=== PATIENT | female | born 1960 | race Caucasian/White ===

== ENCOUNTER 2019-12-23 13:11 | Emergency (ER) | payer MEDICAID ==
[~2019-12-23] VITALS: Ht 162.6 cm; Wt 66.7 kg
[2019-12-23 13:36] VITALS: Ht 162.6 cm; Wt 66.7 kg
[2019-12-23 14:28] LABS: BASOPHIL % 0.3 % (0-2); PLATELET COUNT 343 x10^3mcL (130-400)
[2019-12-23 14:41] LABS: CALCIUM 9.3 mg/dL (8.5-10.1); CARBON DIOXIDE 25.7 mmol/L (21-32); CHLORIDE SERUM 106 mmol/L (98-107); CREATININE SERUM 0.7 mg/dL (0.6-1.0); GFR1 > 60 mL/min; GLUCOSE SERUM 102 mg/dL (74-106); POTASSIUM SERUM 4.2 mmol/L (3.5-5.1); SODIUM SERUM 142 mmol/L (136-145)
[2019-12-23 14:46] LABS: ALBUMIN 4.1 g/dL (3.4-5.0); ALKALINE PHOSPHATASE 140 U/L (46-116); ALT/SGPT 60 U/L (14-59); AST/SGOT 26 U/L (15-37); BILIRUBIN TOTAL 0.29 mg/dL (0.20-1.00); TOTAL PROTEIN, SERUM 8.6 g/dL (6.4-8.2)
[2019-12-23 15:38] VITALS: BP 162/81
== END 2019-12-23 15:38 | disposition home or self-care (01) ==
LOC: ED 13:11
PROVIDERS: Emergency Medicine
DX: R07.89 Other chest pain (principal); I10 Essential (primary) hypertension
CPT/HCPCS: 36415